=== PATIENT | male | born 1970 | race Caucasian/White ===

== ENCOUNTER 2016-05-27 14:04 | Emergency (ER) | payer BC ==
[~2016-05-27] VITALS: Ht 172.7 cm; Wt 77.1 kg
[2016-05-27 14:06] VITALS: BP 186/148
--- NOTE | 2016-05-27 14:11 | NUR ---
Patient ambulated to bed 8.
[2016-05-27] MEDS ORDERED: KETOROLAC 60 MG/2 ML VIAL IM ONE (14:20)
--- NOTE | 2016-05-27 14:30 | NUR ---
PATIENT PRESENTS TO ED WITH C/O LEFT FLANK PAIN .DENIES N/V/D; SKIN IS PINK/WARM/DRY; AAOX4 WITH EVEN AND STEADY GAIT; LUNGS CLEAR BL; HR EVEN AND REGULAR; PT DENIES ANY FEVER, CP, SOB, OR COUGH AT THIS TIME; PATIENT STATES PAIN OF 8/10 AT THIS TIME; VSS; PATIENT POSITIONED FOR COMFORT; HOB ELEVATED; BEDRAILS UP X2; BED DOWN. ER MD MADE AWARE OF PT STATUS.
[2016-05-27] MEDS ORDERED: NACL 0.9% 1,000 ML IV ONE (15:10)
[2016-05-27 16:30] VITALS: BP 129/97
--- NOTE | 2016-05-27 16:31 | NUR ---
Patient discharged with v/s stable. Written and verbal after care instructions given and explained. Patient alert, oriented and verbalized understanding of instructions. Ambulatory with steady gait. All questions addressed prior to discharge. ID band removed. Patient advised to follow up with PMD. Rx of MOTRIN, NORCO AND FLOMAX given. Patient educated on indication of medication including possible reaction and side effects. Opportunity to ask questions provided and answered.
== END 2016-05-27 16:31 | disposition home or self-care (01) ==
LOC: MED 14:04
DX: N20.0 Calculus of kidney (principal); F17.200 Nicotine dependence, unspecified, uncomplicated; Z98.890 Other specified postprocedural states
CPT/HCPCS: 81002; 96360; 96372; 99284; J1885; J7030